=== PATIENT | male | born 1985 ===

== ENCOUNTER 2021-04-23 12:12 | Emergency (ER) | payer OTHER ==
[~2021-04-23] VITALS: Ht 198.1 cm; Wt 136.1 kg
== END 2021-04-23 16:26 | disposition home or self-care (01) ==
LOC: ER 12:12
DX: S93.402A Sprain of unspecified ligament of left ankle, initial encounter (principal); W19.XXXA Unspecified fall, initial encounter; Y92.89 Other specified places as the place of occurrence of the external cause